=== PATIENT | male | born 1995 | race Caucasian/White ===

== ENCOUNTER → 2017-09-05 | Outpatient (CLI) | payer OTHER ==
--- NOTE | 2017-09-09 07:24 | HOLTMON ---
[facility] Test Date: 2017-09-05 Pat Name: LISA HENRY Department: Room: - Gender: Vibration Technician: Kassi Cordero/ANDREEA SHEPHERD : 1995 Requested By: Natalie Roper Order Number: [id number] Reading MD: Tasha Zelaya Interpretive Statements HEART MUMUR WHEN YOUNG. A GREAT DEAL OF ARTIFACT IS SEEN IN THIS STUDY. SINUS THROUGHOUT. (NORMAL SINUS, SINUS DARYN, SINUS TACHY AND SINUS ARRYTHMIA). NO AFIB MENTIONED IN COMPUTER GENERATED REPORT. NO CLINICALLY SIGNIFICANT ST OR QT NOTABLES. NO ECTOPY ON FURNISHED STRIPS.. BENIGN HOLTER. Electronically Signed On 09-09-2017 7:23:48 EST by Tasha Zelaya
== END ==
LOC: M EKG 14:24
PROVIDERS: ATTEND Registered Nurse
DX: R53.83 Other fatigue (principal)

== ENCOUNTER 2022-10-08 16:57 | Emergency (ER) | payer BC ==
[~2022-10-08] VITALS: Ht 177.8 cm; Wt 79.6 kg
[2022-10-08 18:37] LABS: BASO # 0.1 10^3/uL (0.0-0.2); BASO % 0.9 % (0.0-1.0); EOS # 0.3 10^3/uL (0.0-0.5); EOS % 3.2 % (0.0-3.0); HEMATOCRIT 41.5 % (42.0-52.0); HEMOGLOBIN 14.7 g/dl (13.5-17.5); LYMPH # 1.3 10^3/uL (1.5-5.0); LYMPH % 16.6 % (24.0-44.0); MEAN CORPUSCULAR HEMOGLOBIN 29.9 pg (27.0-33.0); MEAN CORPUSCULAR HGB CONC 35.4 g/dl (32.0-36.5); MEAN CORPUSCULAR VOLUME 84.3 fl (80.0-96.0); MONO # 0.7 10^3/uL (0.0-0.8); MONO % 8.1 % (2.0-8.0); NEUTROPHILS # 5.7 10^3/uL (1.5-8.5); NEUTROPHILS % 70.8 % (36.0-66.0); PLATELET COUNT, AUTOMATED 278 10^3/uL (150-450); RED BLOOD COUNT 4.92 10^6/uL (4.30-6.10)
[2022-10-08 18:59] LABS: CK-MB VALUE MASS < 1.0 NG/ML (<3.6); MAGNESIUM LEVEL 1.8 MG/DL (1.8-2.4)
[2022-10-08 19:01] LABS: ALBUMIN 4.1 G/DL (3.2-5.2); ALKALINE PHOSPHATASE 88 U/L (46-116); ALT/SGPT 17 U/L (7.0-40); AST/SGOT 25 U/L (<34); BILIRUBIN,TOTAL 0.6 MG/DL (0.3-1.2); BLOOD UREA NITROGEN 12 MG/DL (9-23); CALCIUM LEVEL 8.9 MG/DL (8.5-10.1); CARBON DIOXIDE LEVEL 24 MMOL/L (20-31); CHLORIDE LEVEL 102 MMOL/L (98-107); GLOMERULAR FILTRATION RATE > 60.0 (>60); GLUCOSE, FASTING 92 MG/DL (60-100); SODIUM LEVEL 139 MMOL/L (136-145); TOTAL PROTEIN 6.9 G/DL (5.7-8.2)
[2022-10-08 19:03] LABS: CPK CREATINE PHOSPHOKINASE 233 U/L (46-171); MB/CK RELATIVE INDEX 0.42 (< OR =4); THYROID STIMULATING HORMONE 1.732 uIU/ML (0.55-4.78)
[2022-10-08 19:37] VITALS: BP 118/63
== END 2022-10-08 19:40 | disposition home or self-care (01) ==
LOC: M ED 16:57
DX: R00.2 Palpitations (principal); F17.200 Nicotine dependence, unspecified, uncomplicated; Z82.49 Family history of ischemic heart disease and other diseases of the circulatory system

== ENCOUNTER → 2023-10-17 | Outpatient (CLI) | payer BC ==
[~2023-10-17] MED LIST: PROHANCE 279.3MG/ML 15ML VIAL As Ordered ONE
== END ==
LOC: M RAD 16:01
PROVIDERS: ATTEND Physician Assistant
DX: R55 Syncope and collapse (principal); R41.82 Altered mental status, unspecified; H53.9 Unspecified visual disturbance
CPT/HCPCS: 70553; A9576

== ENCOUNTER → 2024-03-06 | Outpatient (CLI) | payer BC | LOC: M RAD 13:45 | PROVIDERS: ATTEND Otolaryngology | DX: J32.3 Chronic sphenoidal sinusitis (principal) ==

== ENCOUNTER → 2024-06-17 | Outpatient (REF) | LOC: M SLEEP HO 11:00 | PROVIDERS: ATTEND Physician Assistant | DX: R00.1 Bradycardia, unspecified (principal) ==